=== PATIENT | female | born 1980 | race Caucasian/White ===

== ENCOUNTER 2021-09-11 10:41 | Outpatient (CLI) | payer OTHER ==
[~2021-09-11] VITALS: Ht 162.5 cm; Wt 99.8 kg
[2021-09-11 10:46] VITALS: BP 132/73
[2021-09-11] MEDS ORDERED: BAMLANIVIMAB 700 MG/ETESEVIMAB 1,400 MG IN NS IV ONE ×3 (11:00)
[2021-09-11] MEDS ORDERED: diphenhydrAMINE 50 MG/ML INJ (BENADRYL) IV PRN (11:00)
[2021-09-11] MEDS ORDERED: EPINEPHrine INJECTION 1 MG/ML AMP IM PRN (11:00)
[2021-09-11] MEDS ORDERED: ONDANSETRON 4 MG/2 ML (SDV) Z0FRAN IV PRN (11:00)
[2021-09-11] MEDS ORDERED: ACETAMINOPHEN 500 MG TAB (TYLENOL) PO PRN (11:00)
[2021-09-11 12:20] VITALS: BP 119/64
== END 2021-09-11 12:22 | disposition home or self-care (01) ==
LOC: INFUSION 10:41
PROVIDERS: ATTEND Nurse Practitioner Family
DX: U07.1 COVID-19 (principal); E66.9 Obesity, unspecified